=== PATIENT | male | born 1990 | race African-American/Black ===

== ENCOUNTER 2017-01-17 11:46 | Emergency (ER) | payer OTHER ==
[~2017-01-17] VITALS: Ht 175.3 cm; Wt 62.9 kg
[2017-01-17 12:56] LABS: HEMATOCRIT 24.6 % (38.0-50.0); MCH 36.5 PG (29.0-34.0); MCV 98.8 FL (86-99); MEAN PLAT.VOLUME 9.2 uM^3 (9.0-12.4); NRBC (%) 42.9 /100 WBC (0-0); PLATELET COUNT 244 K/uL (156-360); RBC DIS.WIDTH-CV 20.5 % (11.8-14.6); RBC DIS.WIDTH-SD 70.5 % (39-53); RED BLOOD COUNT 2.49 M/uL (4.00-5.50); WHITE BLOOD COUNT 10.5 K/uL (4.1-10.2)
[2017-01-17 13:06] LABS: CHLORIDE 108 mEq/L (99-109); POTASSIUM 3.4 mEq/L (3.7-5.4); SODIUM 140 mEq/L (136-147)
[2017-01-17 13:07] LABS: GLUCOSE 94 mg/dL (70-99)
[2017-01-17 13:09] LABS: ANION GAP 11 MEQ/L (2-14)
[2017-01-17 13:12] LABS: UREA NITROGEN (BUN) 9 mg/dL (9-23)
[2017-01-17 13:18] LABS: TROP-I INTERPRETATION NEGATIVE; TROPONIN-I < 0.01 ng/mL (0.0-0.30)
[2017-01-17 13:19] LABS: GFR ESTIMATE (CALCULATED) > 59 mL/min/
[2017-01-17 15:08] LABS: IMM.RETIC FRACTION 39.7 % (3-19); RETIC HGB EQUIVALENT 29.7 (28-36); RETICULOCYTE COUNT 12.8 % (0.5-1.8)
[2017-01-17 16:39] VITALS: BP 140/80
== END 2017-01-17 16:41 | disposition home or self-care (01) ==
LOC: EME 11:46
DX: D57.00 Hb-SS disease with crisis, unspecified (principal)
CPT/HCPCS: 71020; 80048; 84484; 85027; 85045; 93005; 99281; 99285; J2270; J2405; J7030

== ENCOUNTER 2017-06-01 19:41 | Inpatient (IN) | payer OTHER ==
[~2017-06-01] VITALS: Ht 180.3 cm; Wt 65.0 kg
[~2017-06-01 19:41] MED LIST: DILAUDID2 MG PO; FOLIC ACID1 MG PO; HYDREA500 MG PO
[2017-06-01 21:06] LABS: HEMATOCRIT 24.1 % (38.0-50.0); HEMOGLOBIN 8.8 G/DL (12.5-16.6); MCH 33.1 PG (29.0-34.0); MCHC 36.5 G/DL (30.0-36.0); MCV 90.6 FL (86-99); NRBC (%) 4.5 /100 WBC (0-0); PLATELET COUNT 341 K/uL (156-360); RBC DIS.WIDTH-CV 22.5 % (11.8-14.6); RBC DIS.WIDTH-SD 70.4 % (39-53); RED BLOOD COUNT 2.66 M/uL (4.00-5.50); WHITE BLOOD COUNT 9.7 K/uL (4.1-10.2)
[2017-06-01 21:14] LABS: ALBUMIN 4.5 g/dL (3.2-4.8)
[2017-06-01 21:15] LABS: CHLORIDE 112 mEq/L (99-109); POTASSIUM 3.9 mEq/L (3.7-5.4); SODIUM 141 mEq/L (136-147)
[2017-06-01 21:17] LABS: GLUCOSE 93 mg/dL (70-99); TOTAL PROTEIN 7.9 g/dL (6.4-8.3)
[2017-06-01 21:19] LABS: TOTAL BILIRUBIN 3.1 mg/dL (0.0-1.0)
[2017-06-01 21:20] LABS: ALKALINE PHOSPHATASE 87 IU/L (3-129)
[2017-06-01 21:21] LABS: CREATININE 0.8 mg/dL (0.6-1.3); GFR ESTIMATE (CALCULATED) > 59 mL/min/ (58.99-99999)
[2017-06-01 21:22] LABS: AST (GOT) 39 IU/L (2-34); UREA NITROGEN (BUN) 5 mg/dL (9-23)
[2017-06-01 21:24] LABS: ALT (GPT) 13 IU/L (3-49)
[2017-06-01 22:40] LABS: INTER. NORMALIZED RATIO 1.2
[2017-06-01 22:43] LABS: PTT 25.8 SEC (25-37)
[2017-06-01 22:54] LABS: TROP-I INTERPRETATION NEGATIVE; TROPONIN-I < 0.01 ng/mL (0.0-0.30)
[2017-06-01 23:13] LABS: IMM.RETIC FRACTION 41.6 % (3-19); RETIC HGB EQUIVALENT 32.7 (28-36); RETICULOCYTE COUNT 16.9 % (0.5-1.8)
[2017-06-02 13:17] LABS: HEMATOCRIT 20.4 % (38.0-50.0); HEMOGLOBIN 7.5 G/DL (12.5-16.6); MCH 33.5 PG (29.0-34.0); MCHC 36.8 G/DL (30.0-36.0); MCV 91.1 FL (86-99); NRBC (%) 13.4 /100 WBC (0-0); PLATELET COUNT 253 K/uL (156-360); RBC DIS.WIDTH-CV 22.8 % (11.8-14.6); RBC DIS.WIDTH-SD 71.5 % (39-53); RED BLOOD COUNT 2.24 M/uL (4.00-5.50); WHITE BLOOD COUNT 12.5 K/uL (4.1-10.2)
[2017-06-02 13:28] LABS: CHLORIDE 114 mEq/L (99-109); POTASSIUM 4.2 mEq/L (3.7-5.4); SODIUM 143 mEq/L (136-147)
[2017-06-02 13:30] LABS: GLUCOSE 93 mg/dL (70-99)
[2017-06-02 13:32] LABS: TOTAL BILIRUBIN 2.8 mg/dL (0.0-1.0)
[2017-06-02 13:33] LABS: ALKALINE PHOSPHATASE 78 IU/L (3-129)
[2017-06-02 13:34] LABS: CREATININE 0.7 mg/dL (0.6-1.3); GFR ESTIMATE (CALCULATED) > 59 mL/min/ (58.99-99999)
[2017-06-02 13:35] LABS: UREA NITROGEN (BUN) 5 mg/dL (9-23)
[2017-06-02 13:36] LABS: AST (GOT) 58 IU/L (2-34)
[2017-06-02 13:37] LABS: ALT (GPT) 26 IU/L (3-49)
[2017-06-02 20:01] VITALS: BP 127/54; BP 144/75
[2017-06-03] VITALS (7 sets, daily range): BP systolic 113–148; BP diastolic 68–78
[2017-06-03 07:10] LABS: HEMATOCRIT 20.1 % (38.0-50.0); HEMOGLOBIN 7.2 G/DL (12.5-16.6); MCH 32.4 PG (29.0-34.0); MCHC 35.8 G/DL (30.0-36.0); MCV 90.5 FL (86-99); NRBC (%) 15.4 /100 WBC (0-0); PLATELET COUNT 300 K/uL (156-360); RBC DIS.WIDTH-CV 23.8 % (11.8-14.6); RBC DIS.WIDTH-SD 72.4 % (39-53); RED BLOOD COUNT 2.22 M/uL (4.00-5.50); WHITE BLOOD COUNT 12.8 K/uL (4.1-10.2)
[2017-06-03 07:46] LABS: ALKALINE PHOSPHATASE 83 IU/L (3-129); ALT (GPT) 19 IU/L (3-49); AST (GOT) 40 IU/L (2-34); CHLORIDE 106 MEQ/L (99-109); CREATININE 0.8 MG/DL (0.6-1.3); GFR ESTIMATE (CALCULATED) > 59 mL/min/ (58.99-99999); GLUCOSE 93 mg/dL (70-99); POTASSIUM 3.5 MEQ/L (3.7-5.4); SODIUM 142 MEQ/L (136-147); TOTAL BILIRUBIN 5.4 MG/DL (0.0-1.0); TOTAL PROTEIN 6.4 G/DL (6.4-8.3); UREA NITROGEN (BUN) 8 mg/dL (9-23)
[2017-06-04 00:32] VITALS: BP 134/60
[2017-06-04 04:10] VITALS: BP 125/61
[2017-06-04 07:06] LABS: HEMATOCRIT 20.4 % (38.0-50.0); HEMOGLOBIN 7.3 G/DL (12.5-16.6); MCH 32.9 PG (29.0-34.0); MCHC 35.8 G/DL (30.0-36.0); MCV 91.9 FL (86-99); NRBC (%) 7.7 /100 WBC (0-0); PLATELET COUNT 289 K/uL (156-360); RBC DIS.WIDTH-CV 22.4 % (11.8-14.6); RED BLOOD COUNT 2.22 M/uL (4.00-5.50); WHITE BLOOD COUNT 15.6 K/uL (4.1-10.2)
[2017-06-04 08:06] VITALS: BP 124/58
[2017-06-04 09:05] LABS: ALBUMIN 3.6 G/DL (3.2-4.8); DIRECT BILIRUBIN 1.1 mg/dL (0.0-0.3); TOTAL BILIRUBIN 4.7 MG/DL (0.0-1.0)
[2017-06-04 09:13] LABS: ALKALINE PHOSPHATASE 82 IU/L (3-129); ALT (GPT) 14 IU/L (3-49); TOTAL PROTEIN 6.2 G/DL (6.4-8.3)
[2017-06-04 09:16] LABS: AST (GOT) 21 IU/L (2-34)
[2017-06-04 12:26] VITALS: BP 127/62
[2017-06-04 16:28] VITALS: BP 128/68
[2017-06-04 20:57] VITALS: BP 123/57
[2017-06-05 00:22] VITALS: BP 126/58
[2017-06-05 07:39] VITALS: BP 107/57
[2017-06-05 09:53] LABS: HEMATOCRIT 16.9 % (38.0-50.0); MCH 31.6 PG (29.0-34.0); MCHC 35.5 G/DL (30.0-36.0); MCV 88.9 FL (86-99); NRBC (%) 2.1 /100 WBC (0-0); RBC DIS.WIDTH-CV 19.3 % (11.8-14.6); RBC DIS.WIDTH-SD 61.5 % (39-53); WHITE BLOOD COUNT 12.2 K/uL (4.1-10.2)
[2017-06-05 09:58] LABS: PLATELET COUNT 408 K/uL (156-360)
[2017-06-05 10:41] LABS: ALBUMIN 3.5 G/DL (3.2-4.8); ALKALINE PHOSPHATASE 67 IU/L (3-129); ALT (GPT) 10 IU/L (3-49); AST (GOT) 15 IU/L (2-34); CHLORIDE 100 MEQ/L (99-109); CREATININE 0.7 MG/DL (0.6-1.3); FERRITIN 1066 NG/ML (22-322); GFR ESTIMATE (CALCULATED) > 59 mL/min/ (58.99-99999); IRON 30 MCG/DL (35-150); POTASSIUM 3.2 MEQ/L (3.7-5.4); SODIUM 138 MEQ/L (136-147); TOTAL BILIRUBIN 4.7 MG/DL (0.0-1.0); TOTAL PROTEIN 6.1 G/DL (6.4-8.3); TRANSFERRIN (TIBC) 142.2 mg/dL (215-380); TRANSFERRIN SATUR. 21 % (20-55); UREA NITROGEN (BUN) 6 mg/dL (9-23)
[2017-06-05 10:44] LABS: FOLIC ACID (FOLATE) > 22.0 NG/ML (5.0-22.0); GLUCOSE 144 mg/dL (70-99)
[2017-06-05 15:02] LABS: HEMATOCRIT 19.2 % (38.0-50.0)
[2017-06-05 16:00] VITALS: BP 136/80
[2017-06-05 19:53] VITALS: BP 134/67
[2017-06-06] VITALS (10 sets, daily range): BP systolic 122–141; BP diastolic 57–74
[2017-06-06] MEDS ORDERED: DILAUDID2 MG PO (10:33)
[2017-06-06] MEDS ORDERED: CIPROFLOXACIN H10 ML BOTH EYES (10:33)
[2017-06-06] MEDS ORDERED: BENADRYL25 MG PO (10:33)
[2017-06-06 11:20] LABS: HEMATOCRIT 16.5 % (38.0-50.0); MCH 31.7 PG (29.0-34.0); MCHC 35.2 G/DL (30.0-36.0); MCV 90.2 FL (86-99); NRBC (%) 2.9 /100 WBC (0-0); PLATELET COUNT 450 K/uL (156-360); RBC DIS.WIDTH-SD 63.7 % (39-53); RED BLOOD COUNT 1.83 M/uL (4.00-5.50)
[2017-06-06 11:22] LABS: HEMOGLOBIN 5.8 G/DL (12.5-16.6)
[2017-06-06 11:49] LABS: CHLORIDE 103 MEQ/L (99-109); CREATININE 0.5 MG/DL (0.6-1.3); GFR ESTIMATE (CALCULATED) > 59 mL/min/ (58.99-99999); POTASSIUM 3.8 MEQ/L (3.7-5.4); SODIUM 140 MEQ/L (136-147); UREA NITROGEN (BUN) 5 mg/dL (9-23)
[2017-06-06 11:58] LABS: GLUCOSE 95 mg/dL (70-99)
[2017-06-07] VITALS (12 sets, daily range): BP systolic 111–138; BP diastolic 57–93
[2017-06-07 08:12] LABS: HEMATOCRIT 33.4 % (38.0-50.0); MCV 88.4 FL (86-99)
[2017-06-07 08:25] LABS: HEMOGLOBIN 11.5 G/DL (12.5-16.6)
[2017-06-08 03:38] VITALS: BP 109/56
[2017-06-08 06:18] LABS: HEMATOCRIT 26.9 % (38.0-50.0); MCH 30.6 PG (29.0-34.0); MCHC 33.8 G/DL (30.0-36.0); MCV 90.6 FL (86-99); NRBC (%) 4.5 /100 WBC (0-0); PLATELET COUNT 497 K/uL (156-360); RBC DIS.WIDTH-SD 58.4 % (39-53)
[2017-06-08 06:19] LABS: HEMOGLOBIN 9.1 G/DL (12.5-16.6); RED BLOOD COUNT 2.97 M/uL (4.00-5.50)
[2017-06-08 07:39] VITALS: BP 121/64
[2017-06-08 15:10] VITALS: BP 124/73
[2017-06-09 00:03] VITALS: BP 131/73
[2017-06-09 07:01] LABS: HEMATOCRIT 28.5 % (38.0-50.0); HEMOGLOBIN 9.7 G/DL (12.5-16.6); MCH 31.1 PG (29.0-34.0); MCV 91.3 FL (86-99); NRBC (%) 6.8 /100 WBC (0-0); PLATELET COUNT 507 K/uL (156-360); RBC DIS.WIDTH-CV 19.6 % (11.8-14.6); RBC DIS.WIDTH-SD 61.2 % (39-53); RED BLOOD COUNT 3.12 M/uL (4.00-5.50); WHITE BLOOD COUNT 7.9 K/uL (4.1-10.2)
[2017-06-09 08:12] VITALS: BP 110/54
== END 2017-06-09 11:11 | disposition home or self-care (01) | DRG 812 ==
LOC: DELPENDDIS → EME 19:41 → 5SOUTH 06-02 04:58 → EDOF 06-02 04:58 → ENRESERV 06-02 05:02 → 5SOUTH 06-02 17:05 → ENPENDDIS 06-06 10:39 → 5SOUTH 06-09 11:11
PROVIDERS: Anesthesiology; Hospitalist; Internal Medicine; Physician Assistant; Physician Assistant Medical
DX: D57.00 Hb-SS disease with crisis, unspecified (principal); R17 Unspecified jaundice; J90 Pleural effusion, not elsewhere classified; D72.829 Elevated white blood cell count, unspecified; R09.02 Hypoxemia; R74.0 Nonspecific elevation of levels of transaminase and lactic acid dehydrogenase [LDH]; H10.9 Unspecified conjunctivitis; Z90.81 Acquired absence of spleen; Z90.49 Acquired absence of other specified parts of digestive tract
CPT/HCPCS: 71045; 71046; 80048; 80053; 80076; 82607; 82728; 82746; 83540; 84466; 84484; 85014; 85018; 85027; 85046; 85610; 85730; 86850; 86900; 86901; 86920; 93005; 94799; 99281; 99285; C1751; J0881; J1100; J1170; J1200; J1650; J2270; J2405; J2765; J7030; J7120; P9016

== ENCOUNTER 2017-08-15 05:51 | Emergency (ER) | payer OTHER ==
[~2017-08-15] VITALS: Ht 172.7 cm; Wt 67.2 kg
[~2017-08-15 05:51] MED LIST changes: +BENADRYL25 MG PO; +CIPROFLOXACIN H10 ML BOTH EYES
[2017-08-15 07:45] LABS: HEMATOCRIT 28.4 % (38.0-50.0); HEMOGLOBIN 10.5 G/DL (12.5-16.6); MCH 35.6 PG (29.0-34.0); MCV 96.3 FL (86-99); NRBC (%) 9.9 /100 WBC (0-0); PLATELET COUNT 308 K/uL (156-360); RBC DIS.WIDTH-CV 24.8 % (11.8-14.6); RED BLOOD COUNT 2.95 M/uL (4.00-5.50); WHITE BLOOD COUNT 9.8 K/uL (4.1-10.2)
[2017-08-15 08:12] LABS: TROP-I INTERPRETATION NEGATIVE; TROPONIN-I < 0.01 ng/mL (0.0-0.30)
[2017-08-15 08:13] LABS: CHLORIDE 111 MEQ/L (99-109); CREATININE 0.6 MG/DL (0.6-1.3); GFR ESTIMATE (CALCULATED) > 59 mL/min/ (58.99-99999); GLUCOSE 95 mg/dL (70-99); IMM.RETIC FRACTION 25.6 % (3-19); POTASSIUM 4.3 MEQ/L (3.7-5.4); RETIC HGB EQUIVALENT 34.4 (28-36); RETICULOCYTE COUNT 21.6 % (0.5-1.8); SODIUM 143 MEQ/L (136-147); UREA NITROGEN (BUN) 8 mg/dL (9-23)
[2017-08-15 11:35] VITALS: BP 125/91
== END 2017-08-15 12:00 | disposition home or self-care (01) ==
LOC: EME 05:51 → EDOF 09:05 → EME 09:05 → ENRESERV 09:06 → EDOF 09:18 → ENRESERV 09:35 → CANRESERV 09:35 → EME 12:00
PROVIDERS: Nurse Practitioner Family
DX: D57.00 Hb-SS disease with crisis, unspecified (principal); R94.31 Abnormal electrocardiogram [ECG] [EKG]; Z90.49 Acquired absence of other specified parts of digestive tract; Z90.81 Acquired absence of spleen
CPT/HCPCS: 71046; 80048; 84484; 85027; 85046; 93005; 99281; 99285; J1170; J2270; J2405; J7030; J7050

== ENCOUNTER 2017-08-16 01:31 | Inpatient (IN) | payer OTHER ==
[~2017-08-16] VITALS: Ht 172.7 cm; Wt 66.5 kg
[2017-08-16 02:33] LABS: CHLORIDE 112 mEq/L (99-109); POTASSIUM 3.5 mEq/L (3.7-5.4); SODIUM 141 mEq/L (136-147)
[2017-08-16 02:35] LABS: GLUCOSE 99 mg/dL (70-99)
[2017-08-16 02:39] LABS: CREATININE 0.7 mg/dL (0.6-1.3); GFR ESTIMATE (CALCULATED) > 59 mL/min/ (58.99-99999)
[2017-08-16 02:40] LABS: UREA NITROGEN (BUN) 9 mg/dL (9-23)
[2017-08-16 02:45] LABS: HEMATOCRIT 22.2 % (38.0-50.0); MCH 35.5 PG (29.0-34.0); MCHC 37.4 G/DL (30.0-36.0); MCV 94.9 FL (86-99); NRBC (%) 23.1 /100 WBC (0-0); PLATELET COUNT 271 K/uL (156-360); RBC DIS.WIDTH-SD 83.2 % (39-53); RED BLOOD COUNT 2.34 M/uL (4.00-5.50); TROP-I INTERPRETATION NEGATIVE; TROPONIN-I < 0.01 ng/mL (0.0-0.30); WHITE BLOOD COUNT 10.5 K/uL (4.1-10.2)
[2017-08-16 02:46] LABS: HEMOGLOBIN 8.3 G/DL (12.5-16.6)
[2017-08-16 03:31] LABS: LACTATE DEHYDROGENASE 529 IU/L (20-246)
[2017-08-16 03:36] LABS: ABS NEUTROPHIL COUNT 8.7; ANISOCYTOSIS 3+; BASOPHILS 0.9 %; BURR CELLS 1+; EOSINOPHIL ABS CT 0; LYMPHOCYTES 11.4 % (15.0-45.0); MACROCYTES 2+; MONOCYTES 5.3 % (0-9.0); NUCLEATED RBC'S 37.7; OVALOCYTES 2+; PLAT.SUFFICIENCY ADEQUATE; POIKILOCYTOSIS 1+; POLYCHROMASIA 3+; SEG.NEUTROPHILS 82.4 % (46.0-76.0); TARGET CELLS 2+
[2017-08-16 03:37] LABS: RETICULOCYTE COUNT > 18.0 % (0.5-1.8)
[2017-08-16 06:05] VITALS: BP 132/60
[2017-08-16 07:59] VITALS: BP 134/87
[2017-08-16 11:21] VITALS: BP 135/82
[2017-08-16 16:58] VITALS: BP 135/60
[2017-08-16 20:23] VITALS: BP 143/77
[2017-08-16 23:38] VITALS: BP 158/76
[2017-08-17 03:25] VITALS: BP 140/80
[2017-08-17 05:34] LABS: HEMATOCRIT 21.6 % (38.0-50.0); HEMOGLOBIN 7.9 G/DL (12.5-16.6); MCH 35.1 PG (29.0-34.0); MCHC 36.6 G/DL (30.0-36.0); NRBC (%) 20.9 /100 WBC (0-0); PLATELET COUNT 266 K/uL (156-360); RBC DIS.WIDTH-CV 24.2 % (11.8-14.6); RBC DIS.WIDTH-SD 82.6 % (39-53); RED BLOOD COUNT 2.25 M/uL (4.00-5.50); WHITE BLOOD COUNT 9.5 K/uL (4.1-10.2)
[2017-08-17 06:00] LABS: ALBUMIN 3.7 G/DL (3.2-4.8); ALKALINE PHOSPHATASE 70 IU/L (3-129); ALT (GPT) 30 IU/L (3-49); AST (GOT) 35 IU/L (2-34); CHLORIDE 105 MEQ/L (99-109); CREATININE 0.7 MG/DL (0.6-1.3); GFR ESTIMATE (CALCULATED) > 59 mL/min/ (58.99-99999); GLUCOSE 94 mg/dL (70-99); LACTATE DEHYDROGENASE 627 IU/L (20-246); POTASSIUM 2.8 MEQ/L (3.7-5.4); SODIUM 139 MEQ/L (136-147); TOTAL BILIRUBIN 5.4 MG/DL (0.0-1.0); TOTAL PROTEIN 6.6 G/DL (6.4-8.3); UREA NITROGEN (BUN) 6 mg/dL (9-23)
[2017-08-17 06:12] LABS: ABSOLUTE RETICULOCYTE CT. 0.36 M/uL (0.02-0.08); RETIC HGB EQUIVALENT 33.5 (28-36)
[2017-08-17 06:13] LABS: RETICULOCYTE COUNT 16.9 % (0.5-1.8)
[2017-08-17 08:00] VITALS: BP 136/74
[2017-08-17 08:42] LABS: MAGNESIUM 1.7 mg/dl (1.3-2.7)
[2017-08-17 09:06] LABS: APPEARANCE CLEAR ((CLEAR)); BILIRUBIN NEGATIVE; BLOOD SMALL; COLOR YELLOW ((YELLOW)); GLUCOSE (STRIP) NEGATIVE; KETONES NEGATIVE; LEUKOCYTES NEGATIVE; NITRITE NEGATIVE; PROTEIN (STRIP) NEGATIVE; SPECIFIC GRAVITY 1.004 (1.000-1.030)
[2017-08-17 09:10] LABS: BACTERIA RARE /HPF; EPITHELIAL CELLS NONE SEEN /HPF; HYALINE CASTS 0-5 /LPF; MUCUS TRACE /LPF; RED BLOOD CELLS 0-5 /HPF (0-5); UCUL ADDED? NO; WHITE BLOOD CELLS 0-5 /HPF (0-5)
[2017-08-17 12:13] VITALS: BP 118/61
[2017-08-17 17:16] VITALS: BP 141/76
[2017-08-17 20:54] VITALS: BP 125/60
[2017-08-17 23:32] VITALS: BP 132/63
[2017-08-18 04:11] VITALS: BP 121/61
[2017-08-18 05:25] LABS: HEMATOCRIT 20.4 % (38.0-50.0); HEMOGLOBIN 7.2 G/DL (12.5-16.6); MCH 33.8 PG (29.0-34.0); MCHC 35.3 G/DL (30.0-36.0); MCV 95.8 FL (86-99); NRBC (%) 8.5 /100 WBC (0-0); PLATELET COUNT 266 K/uL (156-360); RBC DIS.WIDTH-CV 23.6 % (11.8-14.6); RBC DIS.WIDTH-SD 81.1 % (39-53); RED BLOOD COUNT 2.13 M/uL (4.00-5.50); WHITE BLOOD COUNT 7.4 K/uL (4.1-10.2)
[2017-08-18 05:51] LABS: CHLORIDE 108 MEQ/L (99-109); CREATININE 0.6 MG/DL (0.6-1.3); GFR ESTIMATE (CALCULATED) > 59 mL/min/ (58.99-99999); GLUCOSE 77 mg/dL (70-99); SODIUM 142 MEQ/L (136-147); UREA NITROGEN (BUN) 4 mg/dL (9-23)
[2017-08-18 05:52] LABS: POTASSIUM 3.4 MEQ/L (3.7-5.4)
[2017-08-18 06:01] LABS: VANCOMYCIN, TROUGH 6.1 MCG/ML (10-20)
[2017-08-18 07:46] VITALS: BP 133/78
== END 2017-08-18 17:32 | disposition home or self-care (01) | DRG 812 ==
LOC: EME → EDBD 01:31 → EDOF 04:48 → 3EAST 04:48 → ENRESERV 04:49 → 3EAST 05:40
PROVIDERS: Emergency Medicine; Hospitalist; Physician Assistant
DX: D57.00 Hb-SS disease with crisis, unspecified (principal); Z90.81 Acquired absence of spleen; R50.81 Fever presenting with conditions classified elsewhere
CPT/HCPCS: 71045; 71046; 80048; 80053; 80202; 81003; 83615; 83735; 84484; 85025; 85027; 85046; 87040; 99281; 99285; J0696; J1170; J1650; J2270; J3010; J3370; J3475; J3480; J7030; J7040

== ENCOUNTER 2017-10-10 10:56 | Inpatient (IN) | payer OTHER ==
[~2017-10-10] VITALS: Ht 172.7 cm; Wt 63.6 kg
[2017-10-10 13:50] LABS: HEMATOCRIT 25.6 % (38.0-50.0); HEMOGLOBIN 9.5 G/DL (12.5-16.6); MCH 33.8 PG (29.0-34.0); MCHC 37.1 G/DL (30.0-36.0); MCV 91.1 FL (86-99); RBC DIS.WIDTH-CV 24.8 % (11.8-14.6); RBC DIS.WIDTH-SD 76.7 % (39-53); RED BLOOD COUNT 2.81 M/uL (4.00-5.50); WHITE BLOOD COUNT 11.3 K/uL (4.1-10.2)
[2017-10-10 13:58] LABS: ALBUMIN 4.6 g/dL (3.2-4.8)
[2017-10-10 13:59] LABS: CHLORIDE 108 mEq/L (99-109); POTASSIUM 4.2 mEq/L (3.7-5.4); SODIUM 141 mEq/L (136-147)
[2017-10-10 14:01] LABS: GLUCOSE 77 mg/dL (70-99); TOTAL PROTEIN 7.7 g/dL (6.4-8.3)
[2017-10-10 14:03] LABS: TOTAL BILIRUBIN 5.1 mg/dL (0.0-1.0)
[2017-10-10 14:04] LABS: ALKALINE PHOSPHATASE 85 IU/L (3-129)
[2017-10-10 14:05] LABS: CREATININE 0.8 mg/dL (0.6-1.3); GFR ESTIMATE (CALCULATED) > 59 mL/min/ (58.99-99999)
[2017-10-10 14:06] LABS: AST (GOT) 38 IU/L (2-34); UREA NITROGEN (BUN) 4 mg/dL (9-23)
[2017-10-10 14:07] LABS: ALT (GPT) 20 IU/L (3-49)
[2017-10-10 14:39] LABS: ANISOCYTOSIS 3+; BASOPHIL (%) 0.9 % (0-1); BASOPHIL COUNT 0.1 K/uL (0-0.1); EOSINOPHIL (%) 2.1 % (0-5); EOSINOPHIL COUNT 0.2 K/uL (0-0.3); HOWELL JOLLY BODIES 1+; IMM.RETIC FRACTION 42.5 % (3-19); IMMATURE GRANULOCYTE (%) 2.4 % (0.0-0.7); LYMPHOCYTE (%) 36.5 % (15-42); LYMPHOCYTE COUNT 4.1 K/uL (1.0-2.8); MACROCYTES 3+; MICROCYTOSIS 1+; MONOCYTE (%) 9.2 % (3-12); NEUTROPHIL (%) 48.9 % (45-76); NEUTROPHIL COUNT 5.5 K/uL (1.8-6.4); POLYCHROMASIA 3+; RETIC HGB EQUIVALENT 39.3 (28-36); SCHISTOCYTES 1+; SICKLE CELLS 2+; TARGET CELLS 2+
[2017-10-10 14:42] LABS: PLATELET COUNT 402 K/uL (156-360); RETICULOCYTE COUNT > 18.0 % (0.5-1.8)
[2017-10-10 17:02] VITALS: BP 125/74
[2017-10-10 20:02] VITALS: BP 122/69
[2017-10-11] VITALS (7 sets, daily range): BP systolic 118–131; BP diastolic 62–77
[2017-10-11 06:59] LABS: CHLORIDE 113 MEQ/L (99-109); CREATININE 0.7 MG/DL (0.6-1.3); GFR ESTIMATE (CALCULATED) > 59 mL/min/ (58.99-99999); GLUCOSE 75 mg/dL (70-99); POTASSIUM 4.5 MEQ/L (3.7-5.4); SODIUM 143 MEQ/L (136-147); UREA NITROGEN (BUN) 6 mg/dL (9-23)
[2017-10-11 07:10] LABS: HEMOGLOBIN 8.8 G/DL (12.5-16.6); MCH 32.8 PG (29.0-34.0); MCHC 35.2 G/DL (30.0-36.0); MCV 93.3 FL (86-99); NRBC (%) 14.3 /100 WBC (0-0); RBC DIS.WIDTH-CV 25.2 % (11.8-14.6); RBC DIS.WIDTH-SD 81.2 % (39-53); RED BLOOD COUNT 2.68 M/uL (4.00-5.50); RETIC HGB EQUIVALENT 33.4 (28-36); RETICULOCYTE COUNT > 18.0 % (0.5-1.8); WHITE BLOOD COUNT 11.7 K/uL (4.1-10.2)
[2017-10-11 07:17] LABS: PLATELET COUNT 425 K/uL (156-360)
[2017-10-12 03:34] VITALS: BP 132/62
[2017-10-12 05:46] LABS: HEMATOCRIT 21.4 % (38.0-50.0); HEMOGLOBIN 7.8 G/DL (12.5-16.6); MCH 33.2 PG (29.0-34.0); MCHC 36.4 G/DL (30.0-36.0); MCV 91.1 FL (86-99); NRBC (%) 10.4 /100 WBC (0-0); PLATELET COUNT 375 K/uL (156-360); RBC DIS.WIDTH-CV 22.8 % (11.8-14.6); RED BLOOD COUNT 2.35 M/uL (4.00-5.50); WHITE BLOOD COUNT 10.1 K/uL (4.1-10.2)
[2017-10-12 06:23] LABS: CHLORIDE 107 MEQ/L (99-109); CREATININE 0.8 MG/DL (0.6-1.3); GFR ESTIMATE (CALCULATED) > 59 mL/min/ (58.99-99999); GLUCOSE 81 mg/dL (70-99); SODIUM 141 MEQ/L (136-147); UREA NITROGEN (BUN) 6 mg/dL (9-23)
[2017-10-12 07:52] VITALS: BP 119/69
[2017-10-12 12:06] VITALS: BP 121/70
[2017-10-12 15:31] VITALS: BP 128/69
[2017-10-12 19:11] VITALS: BP 118/61
[2017-10-12 23:54] VITALS: BP 118/55
[2017-10-13 03:44] VITALS: BP 118/64
[2017-10-13 05:54] LABS: HEMATOCRIT 20.6 % (38.0-50.0); HEMOGLOBIN 7.5 G/DL (12.5-16.6); MCHC 36.4 G/DL (30.0-36.0); MCV 90.7 FL (86-99); NRBC (%) 4.6 /100 WBC (0-0); RBC DIS.WIDTH-CV 21.4 % (11.8-14.6); RBC DIS.WIDTH-SD 68.2 % (39-53); RED BLOOD COUNT 2.27 M/uL (4.00-5.50); WHITE BLOOD COUNT 8.9 K/uL (4.1-10.2)
[2017-10-13 07:42] VITALS: BP 128/60
[2017-10-13 09:19] LABS: PLAT.SUFFICIENCY ADEQUATE; PLATELET CLUMPS PRESENT - PLATELET COUNT APPEARS ADQ.; PLATELET COUNT UNABLE TO REPORT K/uL (156-360)
[2017-10-13 16:33] VITALS: BP 128/67
[2017-10-13 23:31] VITALS: BP 128/61
[2017-10-14 06:45] LABS: IRON 107 MCG/DL (35-150); TRANSFERRIN (TIBC) 163.8 mg/dL (215-380); TRANSFERRIN SATUR. 65 % (20-55)
[2017-10-14 07:16] LABS: BASOPHIL (%) 0.4 % (0-1); EOSINOPHIL (%) 3.3 % (0-5); EOSINOPHIL COUNT 0.3 K/uL (0-0.3); HEMATOCRIT 18.8 % (38.0-50.0); IMMATURE GRANULOCYTE (%) 0.4 % (0.0-0.7); LYMPHOCYTE COUNT 3.4 K/uL (1.0-2.8); MCH 33.2 PG (29.0-34.0); MCHC 36.7 G/DL (30.0-36.0); MCV 90.4 FL (86-99); MONOCYTE (%) 9.7 % (3-12); NEUTROPHIL (%) 51.2 % (45-76); NRBC (%) 1.5 /100 WBC (0-0); PLATELET COUNT 348 K/uL (156-360); RBC DIS.WIDTH-SD 67.6 % (39-53); RED BLOOD COUNT 2.08 M/uL (4.00-5.50); WHITE BLOOD COUNT 9.8 K/uL (4.1-10.2)
[2017-10-14 07:19] LABS: HEMOGLOBIN 6.9 G/DL (12.5-16.6)
[2017-10-14 07:30] VITALS: BP 117/60
[2017-10-14 07:49] LABS: FERRITIN 663 NG/ML (22-322)
[2017-10-14 15:38] VITALS: BP 121/62
[2017-10-14 20:00] VITALS: BP 120/59
[2017-10-15 00:23] VITALS: BP 146/73
[2017-10-15 03:36] VITALS: BP 133/63
[2017-10-15 08:00] VITALS: BP 122/56
[2017-10-15 10:39] LABS: HEMATOCRIT 18.5 % (38.0-50.0); HEMOGLOBIN 6.6 G/DL (12.5-16.6)
== END 2017-10-15 11:59 | disposition home or self-care (01) | DRG 812 ==
LOC: EME 10:56 → EDOF 14:50 → ENRESERV 15:03 → 5SOUTH 16:35
PROVIDERS: Anesthesiology; Emergency Medicine Emergency Medical Services; Family Medicine; Hospitalist
DX: D57.00 Hb-SS disease with crisis, unspecified (principal); Z90.81 Acquired absence of spleen
CPT/HCPCS: 71046; 80048; 80053; 82728; 83540; 83880; 84466; 85014; 85018; 85025; 85027; 85046; 86850; 86900; 86901; 99281; 99285; J1170; J1200; J1650; J3010; J7030

== ENCOUNTER 2017-10-19 03:11 | Inpatient (IN) | payer OTHER ==
[~2017-10-19] VITALS: Ht 172.7 cm; Wt 62.7 kg
[2017-10-19 05:30] LABS: CHLORIDE 109 mEq/L (99-109); POTASSIUM 3.7 mEq/L (3.7-5.4); SODIUM 141 mEq/L (136-147)
[2017-10-19 05:32] LABS: GLUCOSE 83 mg/dL (70-99)
[2017-10-19 05:36] LABS: CREATININE 0.7 mg/dL (0.6-1.3); GFR ESTIMATE (CALCULATED) > 59 mL/min/ (58.99-99999)
[2017-10-19 05:37] LABS: UREA NITROGEN (BUN) 8 mg/dL (9-23)
[2017-10-19 05:47] LABS: HEMATOCRIT 22.8 % (38.0-50.0); HEMOGLOBIN 8.1 G/DL (12.5-16.6); MCH 33.8 PG (29.0-34.0); MCHC 35.5 G/DL (30.0-36.0); NRBC (%) 6.5 /100 WBC (0-0); RBC DIS.WIDTH-CV 22.5 % (11.8-14.6); RBC DIS.WIDTH-SD 70.4 % (39-53)
[2017-10-19 06:02] LABS: LACTATE DEHYDROGENASE 567 IU/L (20-246)
[2017-10-19 07:46] LABS: ABS NEUTROPHIL COUNT 7.6; ANISOCYTOSIS 3+; EOSINOPHIL ABS CT 0.1; HELMET CELLS 3+; IMM.RETIC FRACTION 33.5 % (3-19); LYMPHOCYTES 29.7 % (15.0-45.0); MACROCYTES 3+; MONOCYTES 3.9 % (0-9.0); NUCLEATED RBC'S 8.9; OVALOCYTES 2+; PLAT.SUFFICIENCY ADEQUATE; PLATELET COUNT 291 K/uL (156-360); POIKILOCYTOSIS 2+; POLYCHROMASIA 3+; RETIC HGB EQUIVALENT 35.9 (28-36); SEG.NEUTROPHILS 56.4 % (46.0-76.0); SICKLE CELLS 1+
[2017-10-19 07:57] LABS: RETICULOCYTE COUNT 12.2 % (0.5-1.8)
[2017-10-19 10:00] VITALS: BP 139/60
[2017-10-19 11:18] LABS: APPEARANCE CLEAR ((CLEAR)); BILIRUBIN NEGATIVE; BLOOD NEGATIVE; COLOR YELLOW ((YELLOW)); GLUCOSE (STRIP) NEGATIVE; KETONES NEGATIVE; LEUKOCYTES NEGATIVE; NITRITE NEGATIVE; PROTEIN (STRIP) 30; SPECIFIC GRAVITY 1.006 (1.000-1.030); UCUL ADDED? NO
[2017-10-19 19:03] VITALS: BP 122/60
[2017-10-19 23:49] VITALS: BP 120/64
[2017-10-20] VITALS (11 sets, daily range): BP systolic 113–141; BP diastolic 66–97
[2017-10-20 07:52] LABS: HEMATOCRIT 27.7 % (38.0-50.0); HEMOGLOBIN 9.7 G/DL (12.5-16.6); MCH 32.6 PG (29.0-34.0); NRBC (%) 14.8 /100 WBC (0-0); RBC DIS.WIDTH-CV 19.9 % (11.8-14.6); RBC DIS.WIDTH-SD 61.5 % (39-53); WHITE BLOOD COUNT 11.4 K/uL (4.1-10.2)
[2017-10-20 07:58] LABS: PLATELET COUNT 433 K/uL (156-360); RED BLOOD COUNT 2.98 M/uL (4.00-5.50)
[2017-10-20 08:01] LABS: IMM.RETIC FRACTION 41.9 % (3-19); RETIC HGB EQUIVALENT 31.2 (28-36); RETICULOCYTE COUNT > 18.0 % (0.5-1.8)
[2017-10-20 08:13] LABS: ALBUMIN 4.1 G/DL (3.2-4.8); CHLORIDE 108 MEQ/L (99-109); POTASSIUM 4.2 MEQ/L (3.7-5.4); SODIUM 141 MEQ/L (136-147)
[2017-10-20 08:19] LABS: ALKALINE PHOSPHATASE 79 IU/L (3-129); ALT (GPT) 26 IU/L (3-49); AST (GOT) 32 IU/L (2-34); CREATININE 0.7 MG/DL (0.6-1.3); GFR ESTIMATE (CALCULATED) > 59 mL/min/ (58.99-99999); GLUCOSE 78 mg/dL (70-99); LACTATE DEHYDROGENASE 503 IU/L (20-246); TOTAL PROTEIN 6.9 G/DL (6.4-8.3); UREA NITROGEN (BUN) 5 mg/dL (9-23)
[2017-10-21] VITALS (7 sets, daily range): BP systolic 120–148; BP diastolic 65–87
[2017-10-22 03:44] VITALS: BP 122/69
[2017-10-22 06:02] LABS: HEMOGLOBIN 8.8 G/DL (12.5-16.6); MCH 32.7 PG (29.0-34.0); MCHC 35.2 G/DL (30.0-36.0); MCV 92.9 FL (86-99); NRBC (%) 3.3 /100 WBC (0-0); PLATELET COUNT 500 K/uL (156-360); RBC DIS.WIDTH-CV 17.2 % (11.8-14.6); RBC DIS.WIDTH-SD 58.4 % (39-53); RED BLOOD COUNT 2.69 M/uL (4.00-5.50); WHITE BLOOD COUNT 9.1 K/uL (4.1-10.2)
[2017-10-22 06:21] LABS: ALBUMIN 3.6 G/DL (3.2-4.8); ALKALINE PHOSPHATASE 66 IU/L (3-129); ALT (GPT) 18 IU/L (3-49); AST (GOT) 18 IU/L (2-34); CHLORIDE 102 MEQ/L (99-109); CREATININE 0.6 MG/DL (0.6-1.3); GFR ESTIMATE (CALCULATED) > 59 mL/min/ (58.99-99999); GLUCOSE 73 mg/dL (70-99); SODIUM 140 MEQ/L (136-147); TOTAL BILIRUBIN 2.6 MG/DL (0.0-1.0); TOTAL PROTEIN 6.5 G/DL (6.4-8.3); UREA NITROGEN (BUN) 6 mg/dL (9-23)
[2017-10-22 06:44] LABS: LACTATE DEHYDROGENASE 339 IU/L (20-246)
[2017-10-22 07:25] VITALS: BP 130/81
[2017-10-22 11:51] VITALS: BP 123/73
[2017-10-22 16:01] VITALS: BP 131/74
[2017-10-22 19:10] VITALS: BP 123/56
[2017-10-22 22:59] VITALS: BP 124/74
[2017-10-23 06:50] VITALS: BP 122/67
[2017-10-23 13:31] VITALS: BP 112/63
[2017-10-23 15:55] VITALS: BP 125/63
[2017-10-23 23:14] VITALS: BP 131/81
[2017-10-24 07:15] VITALS: BP 119/69
[2017-10-24 07:39] LABS: HEMATOCRIT 26.3 % (38.0-50.0); HEMOGLOBIN 8.9 G/DL (12.5-16.6); MCH 31.9 PG (29.0-34.0); MCHC 33.8 G/DL (30.0-36.0); MCV 94.3 FL (86-99); NRBC (%) 1.5 /100 WBC (0-0); PLATELET COUNT 467 K/uL (156-360); RBC DIS.WIDTH-CV 17.4 % (11.8-14.6); RBC DIS.WIDTH-SD 60.1 % (39-53); RED BLOOD COUNT 2.79 M/uL (4.00-5.50); WHITE BLOOD COUNT 6.1 K/uL (4.1-10.2)
[2017-10-24 11:02] VITALS: BP 119/67
[2017-10-24 15:01] VITALS: BP 112/58
[2017-10-24 20:03] VITALS: BP 121/56
[2017-10-25 00:08] VITALS: BP 134/79
[2017-10-25 03:39] VITALS: BP 110/57
[2017-10-25 06:46] VITALS: BP 117/55
[2017-10-25 10:30] VITALS: BP 123/63
[2017-10-25 14:50] VITALS: BP 126/70
[2017-10-25 20:00] VITALS: BP 112/58
[2017-10-26 00:12] VITALS: BP 116/59
[2017-10-26 04:09] VITALS: BP 115/67
[2017-10-26 06:34] LABS: BASOPHIL (%) 0.9 % (0-1); BASOPHIL COUNT 0.1 K/uL (0-0.1); EOSINOPHIL COUNT 0.3 K/uL (0-0.3); HEMATOCRIT 26.3 % (38.0-50.0); HEMOGLOBIN 8.8 G/DL (12.5-16.6); IMMATURE GRANULOCYTE (%) 0.1 % (0.0-0.7); MCH 31.4 PG (29.0-34.0); MCHC 33.5 G/DL (30.0-36.0); MCV 93.9 FL (86-99); MONOCYTE (%) 7.7 % (3-12); MONOCYTE COUNT 0.5 K/uL (0-0.8); NEUTROPHIL (%) 43.3 % (45-76); NRBC (%) 0.6 /100 WBC (0-0); RBC DIS.WIDTH-CV 17.2 % (11.8-14.6); RBC DIS.WIDTH-SD 58.7 % (39-53); WHITE BLOOD COUNT 6.9 K/uL (4.1-10.2)
[2017-10-26 06:36] LABS: PLATELET COUNT 740 K/uL (156-360)
[2017-10-26 06:45] VITALS: BP 96/63
[2017-10-26 08:27] LABS: CHLORIDE 106 MEQ/L (99-109); CREATININE 0.6 MG/DL (0.6-1.3); FERRITIN 1050 NG/ML (22-322); GFR ESTIMATE (CALCULATED) > 59 mL/min/ (58.99-99999); GLUCOSE 76 mg/dL (70-99); POTASSIUM 4.3 MEQ/L (3.7-5.4); SODIUM 139 MEQ/L (136-147); UREA NITROGEN (BUN) 8 mg/dL (9-23)
[2017-10-26 14:46] VITALS: BP 117/69
[2017-10-26 22:33] VITALS: BP 116/60
[2017-10-27 03:07] VITALS: BP 123/80
[2017-10-27 07:06] VITALS: BP 106/56
[2017-10-27 08:17] LABS: HEMATOCRIT 28.5 % (38.0-50.0); HEMOGLOBIN 9.6 G/DL (12.5-16.6); MCH 31.7 PG (29.0-34.0); MCHC 33.7 G/DL (30.0-36.0); MCV 94.1 FL (86-99); NRBC (%) 0.7 /100 WBC (0-0); PLATELET COUNT 795 K/uL (156-360); RBC DIS.WIDTH-CV 17.2 % (11.8-14.6); RBC DIS.WIDTH-SD 59.4 % (39-53); RED BLOOD COUNT 3.03 M/uL (4.00-5.50); WHITE BLOOD COUNT 9.1 K/uL (4.1-10.2)
[2017-10-27 11:01] VITALS: BP 106/56
[2017-10-27 20:11] VITALS: BP 120/61
[2017-10-28 01:09] VITALS: BP 114/58; BP 120/61
[2017-10-28 03:58] VITALS: BP 98/55
[2017-10-28 07:18] VITALS: BP 107/57
[2017-10-28 11:05] VITALS: BP 100/54
[2017-10-28] MEDS ORDERED: MORPHINE SULFAT60 MG PO (11:33)
== END 2017-10-28 12:37 | disposition home or self-care (01) | DRG 812 ==
LOC: EME 03:11 → EDOF 07:36 → 5EAST 07:36 → ENRESERV 07:39 → 5EAST 09:43
PROVIDERS: Anesthesiology; Emergency Medicine; Internal Medicine; Physician Assistant
PROC: 30233N1 Transfusion of Nonautologous Red Blood Cells into Peripheral Vein, Percutaneous Approach (ICD-10-PCS; principal; 2017-10-19)
DX: D57.00 Hb-SS disease with crisis, unspecified (principal); R50.81 Fever presenting with conditions classified elsewhere; K59.00 Constipation, unspecified; Z90.81 Acquired absence of spleen
CPT/HCPCS: 71046; 80048; 80053; 81003; 82728; 83615; 85025; 85027; 85046; 86850; 86900; 86901; 86920; 87040; 99281; 99285; J1170; J1200; J1644; J1885; J3010; J7030; P9040